=== PATIENT | female | born 1995 | race American Indian/Alaskan Native ===

== ENCOUNTER 2020-04-14 14:25 | Emergency (ER) | payer SELFPAY ==
--- NOTE | 2020-04-14 14:42 | Emergency Department Report ---
- General Stated complaint: ALLERGIC REACTION Time Seen by Provider: 04/14/20 14:42 Source: patient Mode of arrival: Ambulatory - History of Present Illness Initial comments: 24 yo AA female comes to ER with rash p sleeping in hotel last night She describes it as flecks of black stops that itch and then when she scratches them they move. Worse on hands and feet but also between thighs No new product or exposure to known allergen. ABC intact no hives no wheezing no fever no cp no sob MD complaint: rash -: Sudden Tetanus Up to Date: yes Location: generalized Severity: moderate Quality: burning Consistency: constant Improves with: none Worsens with: none Context: other Associated symptoms: denies other symptoms - Related Data Previous Rx's Medication Instructions Recorded Last Taken Type Permethrin 5% [Acticin 5% CREAM] 1 applicatio TP ONCE #1 tube 04/14/20 Unknown Rx Allergies Allergy/AdvReac Type Severity Reaction Status Date / Time sulfamethoxazole Allergy Hives Verified 04/14/20 14:44 [From Bactrim] trimethoprim [From Bactrim] Allergy Hives Verified 04/14/20 14:44 Abscess Boil HPI - HPI Stated Complaint: ALLERGIC REACTION Time Seen by Provider: 04/14/20 14:42 Home Medications: Previous Rx's Medication Instructions Recorded Last Taken Type Permethrin 5% [Acticin 5% CREAM] 1 applicatio TP ONCE #1 tube 04/14/20 Unknown Rx Allergies/Adverse Reactions: Allergies Allergy/AdvReac Type Severity Reaction Status Date / Time sulfamethoxazole Allergy Hives Verified 04/14/20 14:44 [From Bactrim] trimethoprim [From Bactrim] Allergy Hives Verified 04/14/20 14:44 ED Review of Systems ROS: Stated complaint: ALLERGIC REACTION Other details as noted in HPI Comment: All other systems reviewed and negative ED Past Medical Hx - Past Medical History Previous Medical History?: No - Surgical History Past Surgical History?: No - Family History Family history: no significant - Social History Smoking Status: Never Smoker Substance Use Type: None - Medications Home Medications: Home Medications Medication Instructions Recorded Confirmed Last Taken Type Permethrin 5% [Acticin 5% CREAM] 1 applicatio TP ONCE #1 tube 04/14/20 Unknown Rx ED Physical Exam - General General appearance: alert, in no apparent distress - Head Head exam: Present: atraumatic, normocephalic - Eye Eye exam: Present: normal appearance - ENT ENT exam: Present: mucous membranes moist - Neck Neck exam: Present: normal inspection - Respiratory Respiratory exam: Present: normal lung sounds bilaterally. Absent: respiratory distress - Cardiovascular Cardiovascular Exam: Present: regular rate, normal rhythm. Absent: systolic murmur, diastolic murmur, rubs, gallop - GI/Abdominal GI/Abdominal exam: Present: soft, normal bowel sounds - Extremities Exam Extremities exam: Present: normal inspection - Back Exam Back exam: Present: normal inspection - Neurological Exam Neurological exam: Present: alert, oriented X3 - Psychiatric Psychiatric exam: Present: normal affect, normal mood - Skin Skin exam: Present: warm, dry, intact, normal color, rash ED Course Vital Signs 04/14/20 14:43 Temperature 98.5 F Pulse Rate 103 H Respiratory 18 Rate Blood Pressure 109/70 [Right] O2 Sat by Pulse 100 Oximetry ED Medical Decision Making - Medical Decision Making rash puritic p sleeping in hotel red lines between macular lesions educated on scabies care dc home with rx and detailed instructions on care. Vital Signs 04/14/20 14:43 Temperature 98.5 F Pulse Rate 103 H Respiratory 18 Rate Blood Pressure 109/70 [Right] O2 Sat by Pulse 100 Oximetry - Differential Diagnosis bedbugs v scabies Critical care attestation.: If time is entered above; I have spent that time in minutes in the direct care of this critically ill patient, excluding procedure time. ED Disposition Clinical Impression: Scabies Disposition: DC-01 TO HOME OR SELFCARE Is pt being admited?: No Does the pt Need Aspirin: No Condition: Stable Instructions: Bedbugs, Scabies, Adult Additional Instructions: clean home care etc med as ordered tonight read attached instructions follow up with pcp referral below Prescriptions: Permethrin 5% [Acticin 5% CREAM] 1 applicatio TP ONCE #1 tube Referrals: DEB OLIVARES MD [Staff Physician] - 3-5 Days Time of Disposition: 14:44
[2020-04-14 14:44] VITALS: BP 109/70
== END 2020-04-14 14:55 | disposition home or self-care (01) ==
LOC: ED 14:25
DX: B86 Scabies (principal); Z88.2 Allergy status to sulfonamides; Z88.8 Allergy status to other drugs, medicaments and biological substances; Z79.899 Other long term (current) drug therapy
CPT/HCPCS: 99282